=== PATIENT | female | born 1970 | race Caucasian/White ===

== ENCOUNTER 2016-12-23 04:09 | Emergency (ER) | payer OTHER ==
[~2016-12-23] VITALS: Ht 162.6 cm; Wt 58.4 kg
[2016-12-23] MEDS ORDERED: MORPHINE SULFATE 4 MG/ML, 1ML IVPush PRN (05:00)
[2016-12-23] MEDS ORDERED: ONDANSETRON 2MG/ML, 2ML IVPush ONE ×2 (05:00→08:00)
[2016-12-23] MEDS ORDERED: SODIUM CHLORIDE FLUSH 10ML SYR IVF ONE (05:00)
[2016-12-23] MEDS ORDERED: FAMOTIDINE 20 MG/2 ML IVP ONE (05:00)
[2016-12-23] MEDS ORDERED: SODIUM CHLORIDE 0.9% 1,000ML IVBOLUS ONE (05:00)
[2016-12-23] MEDS ORDERED: FAMOTIDINE 20 MG/2 ML ONE (05:21)
[2016-12-23] MEDS ORDERED: MORPHINE SULFATE 4 MG/ML, 1ML ONE (05:21)
[2016-12-23] MEDS ORDERED: ONDANSETRON 2MG/ML, 2ML ONE ×2 (05:21→07:56)
[2016-12-23 05:34] LABS: ASPARTATE AMINO TRANSFERASE 19 U/L (15-37); BLOOD UREA NITROGEN 14 mg/dL (7-18)
[2016-12-23 07:22] LABS: PATH.CAST-FLAG NOT PRESENT; SPERM-FLAG NOT PRESENT; SRC-FLAG NOT PRESENT; XTAL-FLAG NOT PRESENT; YLC-FLAG NOT PRESENT
[2016-12-23] MEDS ORDERED: morphine SULFATE 10 MG/ML, 1ML IVPush ONE (08:00)
[2016-12-23 08:17] VITALS: BP 101/63
== END 2016-12-23 08:20 | disposition home or self-care (01) ==
LOC: ED 05:54
DX: K52.9 Noninfective gastroenteritis and colitis, unspecified (principal)
CPT/HCPCS: 36415; 80053; 81001; 83690; 84703; 85025; 96361; 96374; 96375; 96376; 99285; J2405; J7030; S0028

== ENCOUNTER → 2017-09-27 | Outpatient (CLI) | payer OTHER ==
[~2017-09-27] MED LIST: GADOBUTROL 7.5 MMOL/7.5 ML PFS ONE
== END ==
LOC: CFH 13:50
PROVIDERS: ATTEND Psychiatry & Neurology Neurology
DX: H46.8 Other optic neuritis (principal)
CPT/HCPCS: 70543; A9585

== ENCOUNTER 2018-08-22 09:50 | Outpatient (CLI) | payer OTHER | END 2018-08-22 23:59 | disposition home or self-care (01) | LOC: CFH 09:50 | PROVIDERS: ATTEND Nurse Practitioner Family | DX: M47.892 Other spondylosis, cervical region (principal); M48.02 Spinal stenosis, cervical region; M50.221 Other cervical disc displacement at C4-C5 level | CPT/HCPCS: 72141 ==